=== PATIENT | female | born 1940 | race Caucasian/White ===

== ENCOUNTER 2021-06-25 08:38 | Outpatient (CLI) | payer OTHER, SELFPAY ==
--- NOTE | ~2021-06-25 | DEXA_ITS ---
Bone Density Report Name: Ramandeep Gómez Age: 80 Sex: Female Ethnicity: White Date of : 1940 Indication: postmenopausal; Referring Provider: Mary, Rene Study: Bone densitometry was performed. Exam Date: June 25, 2021 Accession number: [id number] Bone Density: Region BMD T-score Z-score Classification AP Spine (L1, L2, L3) 0.798 -2.0 0.5 Osteopenia Femoral Neck (Left) 0.606 -2.2 0.1 Osteopenia Total Hip (Left) 0.634 -2.5 -0.5 Osteoporosis Total Hip Bilateral Avg 0.645 -2.5 -0.5 Osteoporosis Femoral Neck (Right) 0.607 -2.2 0.1 Osteopenia Total Hip (Right) 0.655 -2.4 -0.4 Osteopenia World Health Organization criteria for BMD impression classify patients as: Normal (T-score at or above -1.0), Osteopenia (T-score between -1.0 and -2.5), or Osteoporosis (T-score at or below -2.5). 10-year Fracture Risk: FRAX not reported because: Some T-score for Spine Total or Hip Total or Femoral Neck at or below -2.5 Treated for osteoporosis Clinical Information Provided by Patient: Is being treated for osteoporosis Has used the following medications: Vitamin D, Calcium Patient maximum height was 62 Menopause Age: 57 Drinks caffeinated beverages Onset of menses at age 14 Number of children 2 Impression: The patient has osteoporosis, based on the Left Total Hip T-score. Discussion: It is important to ask patients whether they are taking their medications and to encourage continued and appropriate compliance with their osteoporosis therapies to reduce fracture risk. It is also important to review their risk factors and encourage appropriate calcium and vitamin D intakes, exercise, fall prevention and other lifestyle measures. Follow-Up: Consider a repeat BMD and Vertebral Fracture Assessment (VFA) exam in 2 years or sooner if medically necessary, to reassess this patient's status. Reported by: GERMAINE on 06/25/2021 9:01:00 AM. Reviewed, dictated and finalized at location [facility]
== END 2021-06-25 08:39 | disposition home or self-care (01) ==
PROVIDERS: PCP Hospitalist; Visit Provider Hospitalist
DX: M81.0 Age-related osteoporosis without current pathological fracture (principal); M85.88 Other specified disorders of bone density and structure, other site; M85.852 Other specified disorders of bone density and structure, left thigh; M85.851 Other specified disorders of bone density and structure, right thigh
CPT/HCPCS: 77080

== ENCOUNTER 2024-01-31 07:48 | Outpatient (CLI) | payer OTHER, SELFPAY ==
--- NOTE | ~2024-01-31 | DEXA_ITS ---
Bone Density Report Name: MARIE SANON Age: 83 Sex: Female Ethnicity: White Date of : 1940 Indication: postmenopausal osteoporosis; monitoring treatment; height loss; Referring Provider: JIGAR, ERLIN Simons Study: Bone densitometry was performed. Exam Date: January 31, 2024 Accession number: [id number] Bone Density: Region BMD T-score Z-score Classification AP Spine(L1-L4) 0.877 -1.5 1.2 Osteopenia Femoral Neck (Left) 0.589 -2.3 0.0 Osteopenia Total Hip (Left) 0.713 -1.9 0.3 Osteopenia Femoral Neck (Right) 0.566 -2.5 -0.2 Osteoporosis Total Hip (Right) 0.698 -2.0 0.1 Osteopenia Total Hip Mean 0.706 -2.0 0.2 Osteopenia World Health Organization criteria for BMD impression classify patients as: Normal (T-score at or above -1.0), Osteopenia (T-score between -1.0 and -2.5), or Osteoporosis (T-score at or below -2.5). 10-year Fracture Risk: FRAX not reported because: Some T-score for Spine Total or Hip Total or Femoral Neck at or below -2.5 Treated for osteoporosis Previous Exams: Region Exam Age BMD T-score BMD Change BMD Change Date g/cm2 vs Baseline vs Previous AP Spine (L1-L4) 01/31/2024 83 0.877 -1.5 0.121 (16.0%)* 0.121 (16.0%)* 01/31/2024 83 0.756 -2.6 Total Hip(Left) 01/31/2024 83 0.713 -1.9 0.079 (12.4%)* 0.079 (12.4%)* 06/25/2021 80 0.634 -2.5 Total Hip(Right) 01/31/2024 83 0.698 -2.0 0.043 (6.6%)* 0.043 (6.6%)* 06/25/2021 80 0.655 -2.4 *Denotes significance at 95% confidence level, LSC for AP Spine = 0.022 g/cm2, LSC for Total Hip = 0.027 g/cm2 Clinical Information Provided by Patient: Is being treated for osteoporosis Has used the following medications: Fosamax (i.e. alendronate), Vitamin D, Calcium Patient maximum height was 62.0 Menopause Age: 57 Drinks caffeinated beverages Onset of menses at age 13 Number of children 2 Impression: The patient has osteoporosis, based on the Right Femoral Neck T-score. No significant bone loss was observed. Discussion: PATIENT UNDER TREATMENT WITH NO SIGNIFICANT BMD LOSS SINCE LAST EXAM. In an untreated patient, BMD typically declines with age. A lack of decline or gain is usually a sign that treatment is efficacious and fracture risk is reduced. It is important to ask patients whether they are taking their medications and to encourage continued and appropriate compliance with their osteoporosis therapies to reduce fracture risk. It is also import
== END 2024-01-31 07:49 | disposition home or self-care (01) ==
LOC: ANHIMG 07:52
PROVIDERS: PCP Family Medicine; Visit Provider Family Medicine
DX: M81.0 Age-related osteoporosis without current pathological fracture (principal); M85.88 Other specified disorders of bone density and structure, other site; M85.852 Other specified disorders of bone density and structure, left thigh; M85.851 Other specified disorders of bone density and structure, right thigh
CPT/HCPCS: 77080